=== PATIENT | male | born 1970 | race Caucasian/White ===

== ENCOUNTER → 2017-04-23 | Outpatient (CLI) | payer OTHER ==
[2015-07-26 06:54] VITALS: BP 106/69
--- NOTE | 2017-04-25 08:52 | OP Clinic Progress Note ---
REASON FOR VISIT: Darryn is seen with about a year long history of intermittent pain and discomfort in his nose. He points more to what he feels is the dorsum of his nose but on additional pinpointing of the area, the concern is really the dome of the nose and the nasal tip. 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 He does not have much other sinus history. The patient has a fairly narrow nasal tip. This creates a more exaggerated narrow V-like or intranasal compartment at the nasal tip. This basically makes it a very narrow "V" up there. It tends to crowd the nasal hairs with a higher tendency to create inflammatory and small infections in the nasal vibrissae. With a scope and looking at that area, it is not actively infected and he felt like he was not particularly symptomatic today. There is no evident mass or lesion or lacerations. The remainder of his nose is within normal limits. PLAN: I recommended changing the antibiotic ointment. He had used Neosporin over the counter, which is quite reasonably. He was given a prescription for gentamicin ointment to use twice a day to begin with and then probably p.r.n. after that. It can be a mildly recurrent problem. He can return sooner or a p.r.n. basis. cc: Dr. Ankita HERNANDEZ
== END ==
LOC: ENT 13:57
PROVIDERS: ATTEND Otolaryngology
DX: J34.9 Unspecified disorder of nose and nasal sinuses (principal)
CPT/HCPCS: 99213